=== PATIENT | male | born 1955 | race African-American/Black ===

== ENCOUNTER 2020-03-12 15:54 | Emergency (ER) | payer SELFPAY ==
[~2020-03-12] VITALS: Ht 182.9 cm; Wt 104.3 kg
--- NOTE | 2020-03-12 16:23 | Emergency Department Note ---
History of Present Illnes History of Present Illness Stated Complaint: HIGH BP History of Present Illness This is a 65 year old male hx of HTN not on medication at this time, c/o feeling dizziness and he is asking for work release . Historian: Patient Funeral Service Apprentice Required: No Onset (how long ago): day(s) (1 day) Severity: moderate Onset quality: gradual Duration (how long): day(s) Progression: improving Chronicity: chronic Relieving factors: none Exacerbating factors: none Associated symptoms: denies other symptoms Treatments prior to arrival: none Risk factors: known HTN, race Past Medical/Family History Physician Review I have reviewed the patient's past medical and family history. Any updates have been documented here. 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 Physical Exam Related Data Allergies: Coded Allergies: No Known Allergies (Unverified , 03/12/20) Triage Vital Signs BP is high Physical Exam CONSTITUTIONAL Constitutional: well-developed, well-nourished, other (mild distress) HENT HENT: normocephalic, atraumatic, oropharynx clear/moist, nose normal HENT - Ear: left ext ear normal, right ext ear normal EYES Eyes: PERRL, conjunctivae normal NECK Neck: ROM normal PULMONARY Pulmonary: effort normal, breath sounds normal CARDIOVASCULAR Cardiovascular: regular rhythm, heart sounds normal, capillary refill normal, normal rate, other (no edema) GASTROINTESTINAL Abdominal: soft, nontender, bowel sounds normal GENITOURINARY Genitourinary: exam deferred SKIN Skin: warm, dry MUSCULOSKELETAL Musculoskeletal: ROM normal NEUROLOGICAL Neurological: alert, oriented x 3, no gross motor or sensory deficits, other (walks steady gaits) PSYCHOLOGICAL Psychiatric/behavioral: mood/affect normal, judgement normal Results Laboratory Lab results reviewed: Yes Laboratory comments cardiac fonseca wnl Imaging Imaging Comments no acute intracranial abnormality, he has periodontal disease Diagnostics Tests Diagnostic test(s) reviewed: Yes Procedures 12 Lead ECG Interpretation Funeral Service Apprentice: Interpreted by ED physician Date: March 12, 2020 Time: 16:23 Prior [employer] tracings: not available for review Rhythm: sinus rhythm Rate: normal QRS axis: normal ST Segments Normal: Yes T Waves Normal: Yes Other findings: LAE Clinical Decision Tools HEART Score Date Taken: March 13, 2020 Another reason for symptoms: HEART score not applicable Assessment & Plan Assessment & Plan Problems: (1) Alcoholism (2) Dizzinesses (3) Hypertensive urgency Assessment & Plan Pt is currently has no symptoms. His blood pressure has been high for at least 2 weeks. He saw a dentist for his toothache 2 weeks ago, and he was declined to have procedure done because his BP was too high. His cardiac FONSECA is wnl, BP looks better after Clonidine. will d/c him home with f/u. He actually has a PCP. Since his BP was too high will prescribed him a regimen Depart Disposition: HOME, SELF-long-term Meds Active Scripts Amlodipine Besylate (AMLODIPINE BESYLATE) 5 Mg Tablet, 5 MG PO DAILY, #30 TAB Prov:CIELO LYNCH MD 03/12/20 Losartan/Hydrochlorothiazide (LOSARTAN-HCTZ 100-25 MG TAB) 1 Each Tablet, 1 TAB PO DAILY, #30 Prov:CIELO LYNCH MD 03/12/20 Medications in the ED clonidine 0.2, Tylenol 650 mg CIELO LYNCH MD March 12, 2020 16:23
[2020-03-12] MEDS ORDERED: CLONIDINE HCL 0.2 MG TAB PO ONE (16:30)
[2020-03-12] MEDS ORDERED: ACETAMINOPHEN 325 MG TAB PO ONE (16:30)
[2020-03-12] MEDS ORDERED: CLONIDINE HCL 0.1 MG TAB ONE (16:51)
[2020-03-12] MEDS ORDERED: AMLODIPINE BESYL5 MG PO (17:27)
[2020-03-12] MEDS ORDERED: LOSARTAN-HCTZ1 EAC1 PO (17:27)
--- NOTE | 2020-03-12 17:37 | NUR ---
left arm BP 223/116 right arm 206/110 Dr Myles notified
[2020-03-12 18:00] VITALS: BP 162/94
--- NOTE | 2020-03-13 10:18 | Diagnostic Imaging Report ---
History: Dizziness, elevated blood pressure. Comparison studies: None Technique: Axial images were obtained from the skull base to the vertex. Coronal and sagittal reconstructions obtained from the axial data. Dose modulation, iterative reconstruction, and/or weight based adjustment of the mA/kV was utilized to reduce the radiation dose to as low as reasonably achievable. Findings: Scalp/skull: No abnormalities. No fractures, blastic or lytic lesions. Extra-axial spaces: No masses. No fluid collections. Brain sulci: Appropriate for age. Ventricles: Normal in size and configuration. No hydrocephalus. Parenchyma: No abnormal densities. No masses, hemorrhage, acute or chronic cortical vascular insults. Sellar/suprasellar region: Partial empty sella configuration Craniocervical junction: Patent foramen magnum. No Chiari one malformation. Atherosclerotic calcifications of the carotid siphons. Mucosal thickening at the right maxillary sinus with adjacent periodontal disease of the dentition #2. IMPRESSION: No acute intracranial abnormalities . Periodontal disease at dentition #2 with adjacent right maxillary sinus mucosal inflammatory changes. Signed by: DR Bong Cardona M.D. on 03/13/2020 10:11 AM
== END 2020-03-12 19:18 | disposition home or self-care (01) ==
LOC: FSED 15:54
DX: R42 Dizziness and giddiness (principal); I10 Essential (primary) hypertension; Z72.89 Other problems related to lifestyle; F17.210 Nicotine dependence, cigarettes, uncomplicated
CPT/HCPCS: 70450; 80053; 82553; 83880; 84484; 85025; 93005; 99284